=== PATIENT | male | born 1960 | race Caucasian/White ===

== ENCOUNTER 2020-04-08 13:16 | Emergency (ER) | payer OTHER, SELFPAY ==
[2020-04-08 13:36] VITALS: BP 220/105; PULSE 97; RESP 16; TEMP 36.5; O2SAT 99; BMI 23.5
--- NOTE | 2020-04-08 13:42 | DI.RAD.S_ITS ---
PROCEDURE: XR ELBOW LT MIN 3V INDICATIONS: swelling TECHNIQUE: 3 views of the elbow were acquired. COMPARISON: None. FINDINGS: Bones: There is a transversely oriented, mildly comminuted supracondylar fracture of the left elbow. Small ossific fragments noted over the lateral epicondyle. Moderate overlying soft tissue swelling Soft tissues: Small anterior elbow joint effusion. No suspicious soft tissue calcifications. IMPRESSION: Minimally comminuted, transversely oriented supracondylar fracture of the left distal humerus. Dictated by: Ramesh Ramirez M.D. on 04/08/2020 at 13:14 Approved by: Ramesh Ramirez M.D. on 04/08/2020 at 13:17
--- NOTE | 2020-04-08 14:44 | ED.UPPEXIN ---
HPI - Extremity Injury (Upper) <CHANTELL Phelan - Last Filed: 04/08/20 18:53> General Chief Complaint: Extremity Injury, Upper Stated Complaint: Possible left arm fracture, fell from ladder 04/07 Time Seen by Provider: 04/08/20 13:23 Source: patient Mode of arrival: Ambulatory History of Present Illness HPI narrative: 60yo male presents to the Emergency room for left elbow pain. Patient states he fell 3 ft off of a ladder yesterday evening. He states he was against a wall and fell towards the wall catching his body with his left elbow. Patient states the pain and swelling has continued to increased since the fall, reports difficulty flexing his elbow and rotating his hand. Patient denies any other injury, denies hitting his head. Is not taking any blood thinners. Patient denies any loss of consciousness, shoulder pain, wrist pain, hip pain, back pain, neck pain, ankle pain, or any other concerns. He states he intermittently has lower back muscle aches which have started prior to the fall and have not worsened since the fall. Denies hitting his back. Related Data Home Medications Medication Instructions Recorded Confirmed COENZYME Q10/VITAMIN E (CO-Q-10 100 mg PO QDAY #0 07/28/12 50mg) Milk Thistle Seed (MILK THISTLE 640 mg PO #0 07/28/12 EXTRACT) Allergies Allergy/AdvReac Type Severity Reaction Status Date / Time PENICILLIN Allergy Unknown Uncoded 09/09/17 12:23 Review of Systems <CHANTELL Phelan - Last Filed: 04/08/20 18:53> Review of Systems Narrative: REVIEW OF SYSTEMS: GENERAL: Denies fever or chills. HENT: No head trauma. CARDIOVASCULAR: No chest pain. RESPIRATORY: No shortness of breath or cough. GASTROINTESTINAL: No nausea, vomiting, diarrhea, or constipation. GENITOURINARY: No flank pain. MUSCULOSKELETAL: Complains of left elbow pain, see HPI. INTEGUMENTARY: No rash, lesions, or pruritus. NEURO: No numbness, tingling. Patient History <CHANTELL Phelan - Last Filed: 04/08/20 18:53> Medical History No significant medical problems (Acute) Social History Smoking Status: Never smoker Smoking Status: Never smoker alcohol intake frequency: 0-2 drinks per day Substance Use Type: marijuana Exam <CHANTELL Phelan - Last Filed: 04/08/20 18:53> Initial Vital Signs Initial Vital Signs: Vital Signs Temperature 97.7 F 04/08/20 13:36 Pulse Rate 97 H 04/08/20 13:36 Respiratory Rate 16 04/08/20 13:36 Blood Pressure 220/105 H 04/08/20 13:36 Pulse Oximetry 99 04/08/20 13:36 PHYSICAL EXAMINATION: GENERAL: Well groomed, alert, and cooperative. Answers questions promptly and appropriately. Vital signs noted. HENT: Normocephalic, atraumatic. EYES: Symmetrical, sclera white, no periorbital swelling. NECK: No cervical tenderness. Full range of motion. CARDIOVASCULAR: S1 and S2 sounds normal. Regular rate and rhythm, no murmurs, clicks, or bruits. No pedal edema. RESPIRATORY: Normal respiratory rate, trachea midline, airway patent. No stridor, nasal flaring or accessory muscle use. Lungs are clear in all jaeger. MUSCULOSKELETAL: Tenderness, swelling, and ecchymosis to left elbow. Decreased flexion due to pain, patient has full extension of left elbow. Decreased radial rotation due to pain. Normal gait and coordination. Equal tone and mass bilaterally. No spinal tenderness or deformities. EXTREMITIES: Equal radial pulses bilaterally. CMS intact to left arm and hand. SKIN: Warm, dry, soft, appropriate color for ethnicity. No lesions, rashes, or wounds. NEURO: Alert and Oriented X 3. No sensory deficits. PSYCH: Appropriate affect and mood. <Chalo Dunaway DO - Last Filed: 04/09/20 07:17> Initial Vital Signs Initial Vital Signs: Vital Signs Temperature 97.7 F 04/08/20 13:36 Pulse Rate 97 H 04/08/20 13:36 Respiratory Rate 16 04/08/20 13:36 Blood Pressure 220/105 H 04/08/20 13:36 Pulse Oximetry 99 04/08/20 13:36 Procedures <CHANTELL Phelan - Last Filed: 04/08/20 18:53> Orthopedic Splinting/Casting Injury #1: Side: left Upper Extremity Injury Location: upper arm Upper Extremity Immobilizer: posterior splint Post splinting neuro exam: intact Post splinting vascular exam: intact Placed by: Nursing Course <CHANTELL Phelan - Last Filed: 04/08/20 18:53> Course Course Narrative: 1434: I spoke with orthopedic, Dr. Gardner, who reviewed the x-rays. He recommended splint and follow-up in the clinic. I discussed this with patient, denied needing any pain medication other than ibuprofen as ?he does not like the way it feels ?. Orders Ordered: Discontinued Medications Ketorolac Tromethamine (Toradol) 30 mg IM NOW ONE Stop: 04/08/20 14:41 Last Admin: 04/08/20 14:54 Dose: 30 mg Documented by: MARTHA Consultations Consultation #1: Patient staffed with Dr. Dunaway. Vital Signs Vital signs: Vital Signs - 8 hr 04/08/20 13:36 04/08/20 15:34 Temperature 97.7 F Pulse Rate 97 H 84 Respiratory Rate 16 20 Blood Pressure 220/105 H 225/103 H Pulse Oximetry 99 97 <Chalo Dunaway DO - Last Filed: 04/09/20 07:17> Orders Ordered: Discontinued Medications Ketorolac Tromethamine (Toradol) 30 mg IM NOW ONE Stop: 04/08/20 14:41 Last Admin: 04/08/20 14:54 Dose: 30 mg Documented by: MARTHA Vital Signs Vital signs: Vital Signs - 8 hr 04/08/20 13:36 04/08/20 15:34 Temperature 97.7 F Pulse Rate 97 H 84 Respiratory Rate 16 20 Blood Pressure 220/105 H 225/103 H Pulse Oximetry 99 97 MDM - Extremity Injury (Upper) <CHANTELL Phelan - Last Filed: 04/08/20 18:53> Medical Records Attestation: I reviewed the patient's medical records. Lab Data Attestation: I reviewed the patient's lab results. Imaging Data Extremity x-ray #1: Radiologist's Impression: [address] [address] XRay Report Signed Patient: Kenny Woodward#: [id number] : 9Acct:[id number] Age/Sex: 60 / MDate of Service: 04/08/20 Loc: ED Accession Number: [id number] Procedure: XR elbow LT min 3V Ordering Provider: Chalo Dunaway D.O. PROCEDURE: XR ELBOW LT MIN 3V INDICATIONS: swelling TECHNIQUE: 3 views of the elbow were acquired. COMPARISON: None. FINDINGS: Bones: There is a transversely oriented, mildly comminuted supracondylar fracture of the left elbow. Small ossific fragments noted over the lateral epicondyle. Moderate overlying soft tissue swelling Soft tissues: Small anterior elbow joint effusion. No suspicious soft tissue calcifications. IMPRESSION: Minimally comminuted, transversely oriented supracondylar fracture of the left distal humerus. Dictated by: Ramesh Ramirez M.D. on 04/08/2020 at 13:14 Approved by: Ramesh Ramirez M.D. on 04/08/2020 at 13:17 MDM Narrative Medical decision making narrative: 60-year-old male presenting to the emergency department for left elbow pain post fall. X-ray shows a complicated fracture, orthopedic Dr. Gardner, consulted while patient was in the emergency department. Recommended splinting and follow-up in the clinic. CMS remained intact pre and post splint, radial pulses strong, CMS of distal limb intact without any concerns of blood flow. No concerns for other injury due to lack of pain with palpation of shoulder and wrist. No concerns of spinal injury due to the weight patient fell, lack of spinal pain or back pain, no foot pain or bruising or known injury. Denies any head injury, no LOC. Patient is hemodynamically stable, alert oriented. Declined pain medications stronger than ibuprofen. He was given follow-up instructions and encouraged to call the clinic on Thursday. Patient agreed to plan of care verbalized understanding. Discharge Plan Departure Patient Disposition: Home Clinical Impression: Fracture of distal end of humerus Qualifiers: Encounter type: initial encounter Fracture type: closed Fracture morphology: unspecified fracture morphology Laterality: left Qualified Code(s): S42.402A - Unspecified fracture of lower end of left humerus, initial encounter for closed fracture Discharge Date/Time: 04/08/20 15:44 Instructions: DI for Elbow Fracture Activity Restrictions/Additional Instructions: Thank you for entrusting me with your care today. As discussed, you have fracture of your humerus bone. Please call the ortho clinic listed below on Thursday to schedule a follow-up appointment, this is important as your fracture most likely need surgical repair in order to regain full function of your elbow. Use Tylenol and ibuprofen for pain. Keep the splint in place, if the Tone bandages become very tight, you may loosen them. Return emergency department for any new or worsening symptoms. Prescriptions: No Action COENZYME Q10/VITAMIN E (CO-Q-10 50mg) 100 mg PO QDAY Qty: 0 RF: 0 Milk Thistle Seed (MILK THISTLE EXTRACT) 640 mg PO Qty: 0 RF: 0 Referrals: Hussain Gardner MD [Physician] - <Chalo Dunaway DO - Last Filed: 04/09/20 07:17> Cosign ED Attending Cosignature Attestation: Dr Dunaway Co-Sign Statement: I was available for consultation during this patient's emergency department visit. This chart is signed by myself for administrative purposes only. I did not have direct contact with this patient during this visit. They were seen independently by the APC.
[2020-04-08] MEDS: KETOROLAC 60 MG/2 ML VIAL 30 MG IM (14:54)
[2020-04-08 15:34] VITALS: BP 225/103; PULSE 84; RESP 20; O2SAT 97
== END 2020-04-08 15:44 | disposition home or self-care (01) ==
PROVIDERS: Emergency Provider Nurse Practitioner
DX: S42.402A Unspecified fracture of lower end of left humerus, initial encounter for closed fracture (principal); W11.XXXA Fall on and from ladder, initial encounter
CPT/HCPCS: 29105; 73080; 96372; 99283; J1885

== ENCOUNTER → 2020-04-11 11:06 | Outpatient (CLI) | payer OTHER, SELFPAY ==
--- NOTE | 2020-04-11 | DI.CT.S_ITS ---
PROCEDURE: CT UE LT WO CON INDICATIONS: Unspecified fracture of lower end of left humerus, TECHNIQUE: Noncontrast 3 mm axial sections acquired of the left arm to include the elbow joint area, with coronal and sagittal reformats. COMPARISON: None. FINDINGS: Image quality: Excellent. Bones: Through the left humerus superiorly no fracture is seen. There is a transverse supracondylar fracture involving the distal left humerus, above the elbow joint level. A small degree of comminution along the fracture margins is present, and there is a 9 mm translocation of the humerus medially below the fracture margin when compared to the proximal humerus. Soft tissues: No hematoma found. Small joint effusion. IMPRESSION: Acute appearing transverse supracondylar fracture without extension into the articular surface. Mild comminution at the fracture margins and there is translocation separation of normal anatomic alignment by 9 mm with a more proximal humerus shifted laterally above the fracture plane, in relationship to the more distal humerus immediately below the otherwise nondisplaced fracture. Dictated by: Francesco Bowles M.D. on 04/11/2020 at 11:59 Approved by: Francesco Bowles M.D. on 04/11/2020 at 12:02
== END ==
PROVIDERS: Referring Provider Orthopaedic Surgery Adult Reconstructive Orthopaedic Surgery; Visit Provider Orthopaedic Surgery Adult Reconstructive Orthopaedic Surgery
DX: S42.422A Displaced comminuted supracondylar fracture without intercondylar fracture of left humerus, initial encounter for closed fracture (principal); X58.XXXA Exposure to other specified factors, initial encounter
CPT/HCPCS: 73200

== ENCOUNTER → 2020-04-14 13:56 | Outpatient (CLI) | payer OTHER, SELFPAY ==
[2020-04-14 14:57] LABS: COVID19 -Nasal RAPID Negative (Negative)
== END ==
PROVIDERS: Visit Provider Physician Assistant
DX: Z11.59 Encounter for screening for other viral diseases (principal)
CPT/HCPCS: 87635

== ENCOUNTER 2020-04-16 12:21 | Day surgery (SDC) | payer OTHER, SELFPAY ==
[2020-04-16] VITALS (8 sets, daily range): BP systolic 131–214; BP diastolic 77–102; PULSE 86–96; RESP 8–16; TEMP 36.2–37.1; O2SAT 96–99; BMI 23.2
[2020-04-16] MEDS: LACTATED RINGERS 1,000 ML 42 ML IV (12:49)
--- NOTE | 2020-04-16 12:53 | PM.PREOP ---
Pre-operative Note COVID-19 COVID-19 status: Negative Result date/Date tested (Pos, Neg/Pending): 04/14/20 Interval Note History & Physical reviewed/Exam performed by Physician: Yes Changes to H&P: No
--- NOTE | 2020-04-16 12:54 | P.HP_ITS ---
History of Present Illness History of Present Illness Date Patient Seen: 04/16/20 Time Patient Seen: 12:55 Date of Onset of Symptoms: 04/07/20 Chief complaint: SDC Narrative: 60-year-old gentleman status post fall off a ladder which resulted in a distal humerus fracture the left arm. Patient History Medical History No significant medical problems Surgical History History of hydrocelectomy (07/28/12) Family & Social History Social History: household members spouse Tobacco & Substance use: Smoking Status Never smoker alcohol intake current alcohol intake frequency 0-2 drinks per day Substance Use Type marijuana Meds Home Medications and Allergies Home Medications Medication Instructions Recorded Confirmed Type coenzyme Q10 [Co Q-10] 100 mg PO DAILY #0 07/28/12 04/16/20 History milk thistle 640 mg PO DAILY #0 07/28/12 04/16/20 History Allergies Allergy/AdvReac Type Severity Reaction Status Date / Time PENICILLIN Allergy Unknown Uncoded 09/09/17 12:23 Review of Systems Review of Systems ROS: Yes All systems reviewed with the patient and are negative except as otherwise documented Exam Vital Signs (past 8 hours): - 04/16/20 12:40 Temperature 98.7 F Pulse Rate 94 H Respiratory Rate 16 Blood Pressure 214/102 H Pulse Oximetry 99 Oxygen Delivery Method Room Air Narrative Exam Narrative: Bruising and swelling to the left upper extremity but no sign of any open wounds or blistering. Compartments are soft throughout. Normal range of motion of the wrist and fingers. Ulnar, median, and radial nerves intact both motor and sensory function. 2+ radial pulse. Brisk cap refill. Nontender to palpation in the forearm wrist and hand. No sign of any proximal humerus in jury. No sign of any clavicle injury. Objective Imaging Patient had x-rays and CT scans of the elbow show an extra-articular distal radi us fracture.: My impression: Displaced extra-articular distal radius fracture Assessment & Plan Assessment & Plan narrative: 60-year-old gentleman with a displaced extra- articular distal humerus fracture. Due to the amount of displacement this is something that will require surgery. I went over the risks and limitations associated with the procedure. We discussed operative versus non operative treatment and the risks and limitations associated with both. Patient fully understands potential risks associated with surgery and is in agreement with the plan of an open reduction and internal fixation. All of his questions and concerns were answered to his full satisfaction. COVID-19 COVID-19 status: Negative Time Spent With Patient Time with patient: 15-24 minutes
[2020-04-16] MEDS: fentaNYL 100 MCG/2 ML INJ IV ×2 (13:25→13:33)
[2020-04-16] MEDS: MIDAZOLAM 2 MG/2 ML VIAL IV ×2 (13:25→13:33)
[2020-04-16] MEDS: CEFAZOLIN 2 GM/100 ML FROZ.PIGGY IV (13:40)
--- NOTE | 2020-04-16 13:54 | SUR.PREOP ---
Block start time [1335] . Monitoring initiated and maintained throughout procedure. Oxygen and medications given per anesthesiologist instructions. Patient remained stable throughout procedure, no adverse reactions noted. Block end time [1340].
--- NOTE | 2020-04-16 14:23 | SUR.OPER ---
Lateral on padded OR bed on paulino bag, head on pillow, gel axillary roll in place, bottom leg bent with gel pad under knee to foot, upper leg straight and supported with pillows. Left arm supported by adjustable black arm positioner padded with gel pad, right arm secured to padded arm board. Safety belt at hip, tape over blanket lower legs.
[2020-04-16] MEDS: LIDOCAINE 1% W/EPI 20 ML INJ (14:39)
[2020-04-16] MEDS: SODIUM CHLORIDE 0.9% 1,000 ML 84 ML IV (14:51)
--- NOTE | 2020-04-16 15:36 | P.OP_ITS ---
Operative Date/Time/Diagnoses Date of procedure: 04/16/20 Time of procedure: 14:00 Pre-op diagnosis: Left distal humerus fracture Post-op diagnosis: same Procedure & Clinicians Procedure: Open reduction internal fixation of a left distal humerus fracture Same procedure as scheduled: Yes Indications: Displaced extra-articular left distal humerus fracture Surgeon: Syd Willams Pole Incisor Operator: Pao Urban Anesthesia Type: General and Peripheral nerve block Operative Notes Findings: Displaced extra-articular distal humerus fracture. Transverse fracture with no extension in to the articular surface Closure Type: primary Applied: implant(s) (AccuMed posterior lateral plate) Estimated Blood Loss (mL): 10 Blood products transfused: none Tourniquet time (min): 90 Procedure in detail: On date of service, patient was met in the holding area where her operative site was signed and witnessed by the OR staff. The surgery was once again discussed with the patient and any remaining questions or concerns he had were answered fully. Patient was taken back to the operating theater and placed on the operating table in a supine position. Great care was taken to ensure that all bony prominences were appropriately padded. Time-out was performed verifying patient's name procedure and operative site. Patient was placed in the lateral position and a axillary roll was placed. Left arm was prepped and draped in normal sterile fashion and an Esmarch was used to exsanguinate the limb tourniquet was turned up to 250 mm of mercury. Posterior incision was made starting at the distal 3rd of the humerus and proceeding distally just past the olecranon. Ten blade was used to incise through skin and fascial tissue. Electrocautery was used to achieve hemostasis. Deep knife was used to expose the triceps. The muscle fascia was split sharply with a 15 blade. We were distal to the spiral groove. Tricep muscle was bluntly dissected midline down to the distal humerus. Retractors were placed exposing the distal humerus. Sparrow elevator was used to free up the triceps from the distal humerus given his good visualization of the distal humerus. The most proximal aspect of the triceps tendon was split allowing us to visualize the proximal tip of the olecranon. Curette and rongeur were used to remove any soft tissue interposed at the fracture site. Fracture was reduced and held provisionally with K-wires. C-arm was brought in to verify overall reduction. Once we were satisfied with our reduction, posterior lateral plate was placed and held provisionally with K-wires. Plate positioning was then also verified with AP and lateral views with the mini C-arm. Single proximal screw and single distal screw were placed spanning the fracture site. C-arm was brought in to verify reduction as well as plate positioning. Once we were satisfied with the overall reduction as well as the position of the plate, combination of cortical and locking screws were placed proximally and 4 locking screws were placed in the distal fragment. This provided a secure fixation of the fracture site. We were able to flex and extend the elbow with no motion at the fracture site. C- arm was brought in once again to verify overall reduction as well as plate and screw positioning. The wound was then copiously irrigated. The split in the triceps tendon was repaired with FiberWire. Nonabsorbable suture was then used to repair the triceps fascia. The rest of the wound was closed in layered fashion. The arm was cleaned, dried, and dressed and patient was placed into a posterior splint. Patient was extubated and taken to the PACU in stable condition. Complications: none Post-operative Condition: stable Disposition: PACU Plan for aftercare: Splint will be on for the next 48 hours. After that, splint can be removed and patient is allowed to engage in range of motion exercises. No restrictions to range of motion. Sling is for comfort. No lifting more than 1-2 lb for the next 6 weeks.
[2020-04-16] MEDS: fentaNYL 100 MCG/2 ML INJ 50 MCG IV ×2 (16:18→16:23)
[2020-04-16] MEDS: OXYCODONE/ACETAMINOPHEN 5/325 TABLET 1 TAB PO (16:20)
[2020-04-16] MEDS: OXYCODONE IR 5 MG TABLET PO (16:42)
== END 2020-04-16 17:30 | disposition home or self-care (01) ==
PROVIDERS: Referring Provider Orthopaedic Surgery; Visit Provider Orthopaedic Surgery
PROC: (CPT 24515; principal; 2020-04-16 14:00)
DX: S42.492A Other displaced fracture of lower end of left humerus, initial encounter for closed fracture (principal); W11.XXXA Fall on and from ladder, initial encounter
CPT/HCPCS: 24515; 64450; J0330; J0690; J1100; J2250; J2405; J2704; J3010

== ENCOUNTER → 2020-08-09 09:36 | Outpatient (CLI) | payer OTHER, SELFPAY ==
--- NOTE | 2020-08-09 | DI.US.S_ITS ---
PROCEDURE: US ABDOMEN LIMITED INDICATIONS: HEP C TECHNIQUE: Real-time scanning was performed of the abdominal and retroperitoneal organs, with image documentation. COMPARISON: None. FINDINGS: Liver: Liver is normal in size and homogeneous in echotexture. There is a 0.9 x 0.6 x 1.0 cm echogenic mass in the anterior right hepatic lobe without associated vascularity. There is also a complicated cyst noted in the left hepatic lobe measuring 0.6 x 0.6 x 0.6 cm. Main portal vein appears patent with normal flow direction. Gallbladder: Gallbladder is normal in sonographic appearance without gallstones, gallbladder wall thickening, pericholecystic fluid, or abnormal sonographic Hinton's. Biliary ducts: Intrahepatic bile ducts are non-dilated. Extrahepatic bile duct caliber measures 4 mm. Normal is 6-7 mm or less in diameter, or 10 mm or less post-cholecystectomy. Pancreas: Visualized portions of the pancreas are sonographically normal. IMPRESSION: 1. A 1.0 cm right hepatic lobe echogenic mass without associated vascularity which possibly represents a hepatic hemangioma. There is also a 0.6 cm complicated cyst in the left hepatic lobe. Otherwise, no suspicious intrahepatic mass lesions identified. Normal hepatic echotexture. Recommend continued clinical and imaging surveillance. 2. Normal appearance of the biliary ductal system, gallbladder, and pancreas. Dictated by: Ramesh Ramirez M.D. on 08/09/2020 at 12:28 Approved by: Ramesh Ramirez M.D. on 08/09/2020 at 12:31
== END ==
PROVIDERS: Referring Provider Internal Medicine Infectious Disease; Visit Provider Internal Medicine Infectious Disease
DX: R76.8 Other specified abnormal immunological findings in serum (principal); K76.89 Other specified diseases of liver; R16.0 Hepatomegaly, not elsewhere classified
CPT/HCPCS: 76705

== ENCOUNTER → 2020-08-31 13:06 | Outpatient (CLI) | payer OTHER, SELFPAY | PROVIDERS: PCP Internal Medicine Infectious Disease; Referring Provider Internal Medicine Infectious Disease; Visit Provider Internal Medicine Infectious Disease | DX: R16.0 Hepatomegaly, not elsewhere classified (principal); Z53.20 Procedure and treatment not carried out because of patient's decision for unspecified reasons ==

== ENCOUNTER → 2020-10-16 10:02 | Outpatient (CLI) | payer OTHER, SELFPAY ==
[2020-10-16 20:24] LABS: Alanine Aminotransferase 22 IU/L (<50); Albumin Globulin Ratio 1.8 (1.0-2.8); Alkaline Phosphatase 107 U/L (38-126); Aspartate Aminotransferase 32 IU/L (17-59); BUN Creatinine Ratio 18.5 (6-22); Bilirubin Total 0.6 mg/dL (0.2-1.3); Blood Urea Nitrogen 15 mg/dL (9-20); Calcium 9.6 mg/dL (8.4-10.2); Carbon Dioxide 28 mmol/L (22-32); Chloride 107 mmol/L (98-107); Estimated Glomerular Filt Rate > 60.0 mL/min (>60); Globulin 2.2 g/dL (1.7-4.1); Glucose 88 mg/dL (80-110); HEMOLYSIS < 15 (0-50); Potassium 4.4 mmol/L (3.4-5.1); Sodium 141 mmol/L (137-145); Total Protein 6.2 g/dL (6.3-8.2)
== END ==
PROVIDERS: PCP Internal Medicine Infectious Disease; Visit Provider Internal Medicine Infectious Disease
DX: R76.8 Other specified abnormal immunological findings in serum (principal)
CPT/HCPCS: 80053

== ENCOUNTER → 2021-01-28 11:37 | Outpatient (CLI) | payer OTHER, SELFPAY ==
[2021-01-28 20:30] LABS: Alanine Aminotransferase 21 IU/L (<50); Albumin 4.4 g/dL (3.5-5.0); Albumin Globulin Ratio 1.8 (1.0-2.8); Alkaline Phosphatase 79 U/L (38-126); Aspartate Aminotransferase 30 IU/L (17-59); Bilirubin Unconjugated 0.7 mg/dL (0.0-1.1); Globulin 2.5 g/dL (1.7-4.1); HEMOLYSIS < 15 (0-50); Total Protein 6.9 g/dL (6.3-8.2)
== END ==
PROVIDERS: PCP Internal Medicine Infectious Disease
DX: R76.8 Other specified abnormal immunological findings in serum (principal)
CPT/HCPCS: 80076; 87522

== ENCOUNTER → 2021-09-06 09:06 | Outpatient (CLI) | payer OTHER, SELFPAY ==
[2021-09-06 19:16] LABS: Add Manual Diff / Slide Review NO; Basophils Absolute Auto 0 /uL (0-100); Basophils Percent Auto 0.4 % (0-2); Eosinophils Absolute Auto 600 /uL (0-450); Eosinophils Percent Auto 8.8 % (2-4); Hematocrit 46.8 % (41-53); Hemoglobin 15.7 g/dL (13.5-17.5); Lymphocytes Absolute Auto 1600 /uL (1100-4500); Lymphocytes Percent Auto 22.3 % (25-40); Mean Corpuscular HGB Conc 33.5 % (30-36); Mean Corpuscular Hemoglobin 32.2 PG (26-34); Mean Corpuscular Volume 96.1 fL (80-100); Monocytes Absolute Auto 900 /uL (0-900); Monocytes Percent Auto 11.6 % (3-14); Neutrophils Absolute Auto 4200 /uL (1500-7000); Neutrophils Percent Auto 56.9 % (50-75); Platelet Count 223 X10^3/uL (150-400); Red Blood Cell Count 4.87 X10^6/uL (4.5-5.9); Red Cell Distribution Width 12.8 % (11.6-14.8); White Blood Cell Count 7.4 X10^3/uL (4.5-11.0)
[2021-09-06 19:28] LABS: Alanine Aminotransferase 28 IU/L (<50); Albumin 4.2 g/dL (3.5-5.0); Albumin Globulin Ratio 1.8 (1.0-2.8); Alkaline Phosphatase 82 U/L (38-126); Aspartate Aminotransferase 39 IU/L (17-59); BUN Creatinine Ratio 14.9 (6-22); Bilirubin Total 1.2 mg/dL (0.2-1.3); Blood Urea Nitrogen 14 mg/dL (9-20); Calcium 9.2 mg/dL (8.4-10.2); Carbon Dioxide 26 mmol/L (22-32); Chloride 106 mmol/L (98-107); Cholesterol 210 mg/dL (140-199); Estimated Glomerular Filt Rate > 60.0 mL/min (>60); Globulin 2.4 g/dL (1.7-4.1); Glucose 98 mg/dL (80-110); HDL Cholesterol 67 mg/dL (40-60); HEMOLYSIS 32 (0-50); LDL Cholesterol Calculated 123 mg/dL (<100); Potassium 4.2 mmol/L (3.4-5.1); Sodium 140 mmol/L (137-145); Total Protein 6.6 g/dL (6.3-8.2); Triglycerides 99 mg/dL (35-150)
[2021-09-06 19:56] LABS: Prostate Specific Antigen 0.808 ng/mL (0.10-4.00)
== END ==
PROVIDERS: PCP Internal Medicine Infectious Disease; Visit Provider Physician Assistant
DX: E78.5 Hyperlipidemia, unspecified (principal); I10 Essential (primary) hypertension; Z12.5 Encounter for screening for malignant neoplasm of prostate
CPT/HCPCS: 80053; 80061; 84153; 85025

== ENCOUNTER → 2023-02-18 10:22 | Outpatient (CLI) | payer OTHER, SELFPAY ==
[2023-02-18 20:08] LABS: Add Manual Diff / Slide Review NO; Basophils Absolute Auto 0 /uL (0-100); Basophils Percent Auto 0.5 % (0-2); Eosinophils Absolute Auto 200 /uL (0-450); Eosinophils Percent Auto 3.8 % (2-4); Hematocrit 46.2 % (41-53); Hemoglobin 15.8 g/dL (13.5-17.5); Lymphocytes Absolute Auto 1900 /uL (1100-4500); Lymphocytes Percent Auto 29.7 % (25-40); Mean Corpuscular HGB Conc 34.2 % (30-36); Mean Corpuscular Hemoglobin 32.8 PG (26-34); Mean Corpuscular Volume 95.7 fL (80-100); Monocytes Absolute Auto 700 /uL (0-900); Monocytes Percent Auto 11.7 % (3-14); Neutrophils Absolute Auto 3400 /uL (1500-7000); Neutrophils Percent Auto 54.3 % (50-75); Platelet Count 259 X10^3/uL (150-400); Red Blood Cell Count 4.83 X10^6/uL (4.5-5.9); Red Cell Distribution Width 12.8 % (11.6-14.8); White Blood Cell Count 6.3 X10^3/uL (4.5-11.0)
[2023-02-18 20:18] LABS: Alanine Aminotransferase 27 IU/L (<50); Albumin 4.3 g/dL (3.5-5.0); Albumin Globulin Ratio 1.7 (1.0-2.8); Alkaline Phosphatase 75 U/L (38-126); Aspartate Aminotransferase 27 IU/L (17-59); BUN Creatinine Ratio 14.6 (6-22); Bilirubin Total 0.8 mg/dL (0.2-1.3); Blood Urea Nitrogen 14 mg/dL (9-20); Carbon Dioxide 28 mmol/L (22-32); Chloride 104 mmol/L (98-107); Cholesterol 209 mg/dL (140-199); Estimated Glomerular Filt Rate > 60 mL/min (>60); Globulin 2.6 g/dL (1.7-4.1); Glucose 96 mg/dL (80-110); HDL Cholesterol 57 mg/dL (40-60); HEMOLYSIS < 15 (0-50); LDL Cholesterol Calculated 132 mg/dL (<100); Potassium 4.4 mmol/L (3.4-5.1); Sodium 138 mmol/L (137-145); Total Protein 6.9 g/dL (6.3-8.2); Triglycerides 99 mg/dL (35-150)
[2023-02-18 20:47] LABS: Prostate Specific Antigen Scrn 2.05 ng/mL (0.1-4.0)
[2023-02-19 16:57] LABS: Hep C Virus Ab w/Reflex Quant REACTIVE s/c (NEGATIVE)
== END ==
PROVIDERS: PCP Physician Assistant; Visit Provider Physician Assistant
DX: I10 Essential (primary) hypertension (principal); E78.5 Hyperlipidemia, unspecified; B19.20 Unspecified viral hepatitis C without hepatic coma; Z79.899 Other long term (current) drug therapy; Z12.5 Encounter for screening for malignant neoplasm of prostate
CPT/HCPCS: 80053; 80061; 85025; 86803; 87522; G0103

== ENCOUNTER → 2024-12-07 09:28 | Outpatient (CLI) | payer MEDICARE, BC, SELFPAY ==
[2024-12-07 19:43] LABS: Alanine Aminotransferase 23 IU/L (<50); Albumin 4.3 g/dL (3.5-5.0); Albumin Globulin Ratio 1.8 (1.0-2.8); Alkaline Phosphatase 71 U/L (38-126); Blood Urea Nitrogen 15 mg/dL (9-20); Calcium 9.5 mg/dL (8.4-10.2); Carbon Dioxide 27 mmol/L (22-32); Chloride 106 mmol/L (98-107); Cholesterol 208 mg/dL (140-199); Estimated Glomerular Filt Rate > 60 mL/min (>60); Globulin 2.4 g/dL (1.7-4.1); Glucose 88 mg/dL (70-99); HDL Cholesterol 67 mg/dL (40-60); HEMOLYSIS 17 (0-50); Potassium 4.3 mmol/L (3.4-5.1); Sodium 138 mmol/L (137-145); Total Protein 6.7 g/dL (6.3-8.2); Triglycerides 93 mg/dL (35-150)
[2024-12-07 21:02] LABS: Add Manual Diff / Slide Review NO; Hematocrit 45.5 % (41-53); Hemoglobin 15.4 g/dL (13.5-17.5); Lymphocytes Absolute Auto 1600 /uL (1100-4500); Mean Corpuscular HGB Conc 33.8 % (30-36); Mean Corpuscular Hemoglobin 33.3 PG (26-34); Mean Corpuscular Volume 98.6 fL (80-100); Platelet Count 246 X10^3/uL (150-400)
== END ==
PROVIDERS: PCP Physician Assistant; Visit Provider Physician Assistant
DX: Z12.5 Encounter for screening for malignant neoplasm of prostate (principal); E78.5 Hyperlipidemia, unspecified; R79.89 Other specified abnormal findings of blood chemistry; I10 Essential (primary) hypertension; Z79.899 Other long term (current) drug therapy
CPT/HCPCS: 80053; 80061; 85025; G0103